=== PATIENT | female | born 1970 | race African-American/Black ===

== ENCOUNTER 2021-01-26 15:18 | Emergency (ER) | payer MEDICAID ==
[~2021-01-26] VITALS: Ht 170.2 cm; Wt 117.9 kg
[2021-01-26 15:33] VITALS: BP 149/116
--- NOTE | 2021-01-26 15:38 | NUR ---
PT AMBULATED TO ER BED 12
--- NOTE | 2021-01-26 16:00 | NUR ---
50 Y/O FEMALE C/O LEFT LEG PAIN XYESTERDAY. DENIES ANY RECENT INJURY OR FALL. PT REPORTS HX OF SCIATICA ON RIGHT SIDE BUT YESTERDAY NOW HER LEFT LEG IS BORTHERING HER. PT RATES 10/10 PAIN THAT STARTS AT L THIGH AND RADIATES DOWN TO TOES. PT DESCRIBES PAIN SHOOTING, BURNING AND STATES "IT FEELS LIKE MY CALF IS BREAKING". DENIES TAKING ANYTHING FOR PAIN. PT HAS FULL SENSATION/ROM. DENIES NUMBNESS/TINGLING. BILATERAL EQUAL PULSES. PT A/O X4 WITH EVEN AND UNLABORED RESPIRATIONS PMH:SCIATICA, HTN, BELLY PALLSY NKDA
--- NOTE | 2021-01-26 16:30 | NUR ---
PA BLEVINS AT BEDSIDE EVALUATING PT
[2021-01-26] MEDS ORDERED: ONDANSETRON 4 MG TAB PO ONE (16:35)
[2021-01-26] MEDS ORDERED: KETOROLAC 30 MG/ML VIAL IM ONE (16:35)
[2021-01-26] MEDS ORDERED: HYDROcodone/APAP 7.5/325 MG 1 TAB PO ONE (16:35)
[2021-01-26] MEDS ORDERED: METH4TAB27 PO (17:35)
[2021-01-26] MEDS ORDERED: ACET-8386 PO ×2 (17:35→17:37)
[2021-01-26] MEDS ORDERED: IBUP-2213 PO (17:35)
== END 2021-01-26 17:45 | disposition home or self-care (01) ==
LOC: MED 15:18
DX: S39.012A Strain of muscle, fascia and tendon of lower back, initial encounter (principal); F17.210 Nicotine dependence, cigarettes, uncomplicated; I10 Essential (primary) hypertension; E66.9 Obesity, unspecified; Z68.41 Body mass index [BMI] 40.0-44.9, adult; Z79.899 Other long term (current) drug therapy; X58.XXXA Exposure to other specified factors, initial encounter; Y93.89 Activity, other specified; Y92.89 Other specified places as the place of occurrence of the external cause; Y99.8 Other external cause status
CPT/HCPCS: 81002; 96372; 99283; J1885; Q0162